=== PATIENT | female | born 1955 | race Caucasian/White ===

== ENCOUNTER 2019-09-20 05:48 | Day surgery (SDC) | payer OTHER, SELFPAY ==
[2019-09-20] VITALS (8 sets, daily range): BP systolic 108–130; BP diastolic 73–83; PULSE 56–85; RESP 15–16; TEMP 36.5–36.8; O2SAT 93–97; BMI 33.5
--- NOTE | 2019-09-20 05:57 | EKG12_ITS ---
Test Reason : PRE OP Blood Pressure : / mmHG Vent. Rate : 055 BPM Atrial Rate : 055 BPM P-R Int : 154 ms QRS Dur : 078 ms QT Int : 432 ms P-R-T Axes : 052 024 018 degrees QTc Int : 413 ms Sinus bradycardia Otherwise normal ECG No previous ECGs available Confirmed by RIANNA CARDENAS, JEANNETTE ([id number]), fan mail editor APRYL GAO ([id number]) on 09/24/2019 9:57:07 AM Referred By: Mekhi Montiel Confirmed By:JEANNETTE BLANCA MD
[2019-09-20] MEDS: Lactated Ringers 1,000 ML 100 ML IV (06:27)
[2019-09-20 06:34] LABS: Hematocrit 38.2 % (37-47); Hemoglobin 12.6 g/dL (12.0-15.0); Mean Corpuscular Hgb 30.3 pg (27.0-32.0); Mean Corpuscular Volume 91.8 fL (81-99); Mean Platelet Vol. 8.9 fl (6.2-12.0); Platelet Count 213 K/mm3 (150-450); RBC Distribution Width SD 40.7 fl (35.1-43.9); Red Blood Count 4.16 M/mm3 (4.2-5.4); White Blood Count 4.6 K/mm3 (4.4-11.0)
[2019-09-20 06:48] LABS: International Normalized Ratio 1.1; Prothrombin Time (Protime)PT. 13.9 SECONDS (11.7-14.9)
[2019-09-20 06:49] LABS: Partial Thromboplast Time 36.5 Seconds (24.1-36.2)
[2019-09-20 07:05] LABS: AST(SGOT) 17 U/L (15-37); Alanine Aminotransfer ALT/SGPT 27 U/L (13-56); Albumin, Serum 3.7 g/dL (3.2-5.0); Alkaline Phosphatase 111 U/L (45-117); Bilirubin, Direct 0.16 mg/dL (0.00-0.30); Globulin 3.6 g/dL (2.2-4.2); Protein, Total 7.3 g/dL (6.4-8.2)
--- NOTE | 2019-09-20 07:30 | ETH_PTH ---
PATIENT: AGUS GUILLERMO [place] [facility] [place][id number] AGE/SX: 63/F ROOM: RE09/20/[address]: Dr. Mekhi Montiel MD : [id number] BED: DIS: 09/20/2019 SPEC #: [id number] RECD: 09/20/19 10:25 STATUS: JOAQUÍN RITU #: [id number] JOSEPH: 09/20/19 07:[address]: Mekhi Montiel DEPT: SURGICAL PATHOLOGY RECD BY: Brannon Scott Tissues: A - Ethmoid sinus, NOS B - Ethmoid sinus, NOS Procedures: Decalcification bone/plaque Surgery Specimen Level III HEADER OPERATION: Endoscopic nasal sinus maxillary antrostomy PRE-OP DIAGNOSIS: Chronic ethmoidal sinusitis and chronic maxillary sinusitis TISSUE SUBMITTED: A - Left sinus contents, B - Right sinus contents MICROSCOPIC DIAGNOSIS A. Left sinus contents, excision: Consistent with chronic sinusitis. Fragments of bone with no pathologic change. B. Right sinus contents, excision: Consistent with chronic sinusitis. Fragments of bone with no pathologic change. AM:yesenia 09/26/19 MICROSCOPIC DESCRIPTION Slides are reviewed. GROSS DESCRIPTION A - Received in fixative is one container labeled with the patient's name and designated left sinus contents. The specimen consists of multiple fragments of hemorrhagic soft tissue mixed with fragments of bone including turbinate that in aggregate measure 4 x 5 x 1.5 cm. Postal Worker tissue is submitted in two cassettes after decalcification. B - Received in fixative is one container labeled with the patient's name and designated right sinus contents. The specimen consists of multiple fragments of hemorrhagic soft tissue mixed with fragments of bone and turbinate that in aggregate measure 5 x 3 x 0.3 cm. The entire specimen is submitted in two cassettes after decalcification. / SJ:yesenia 09/20/19 TC:3 CPT: 57892 x2, 02345 x2
[2019-09-20] MEDS: Oxymetazoline 0.05% 1 SPRAY SPRAY.BTL 15 SPRAY (08:00)
[2019-09-20] MEDS: Lidocaine 4% 50 ML Bottle (08:00)
--- NOTE | 2019-09-20 08:59 | OP.PCM_ITS ---
Problem List (1) Chronic maxillary sinusitis Status: Chronic (2) Chronic ethmoidal sinusitis Status: Chronic Report of Operation Date of Procedure: 09/20/19 Pre-Operative Diagnosis: Chronic bilateral maxillary and ethmoid sinisitis Post-Operative Diagnosis: Same Surgery/Procedure Performed:: Bilateral endoscopic maxillary antrostomies, total ethmoidectomies Description of Surgical Findings:: Starla is a 63-year-old female with complaints of chronic nasal congestion, facial pain and pressure. This had failed to respond appropriate medical the rapy and CT scan showed chronic sinus changes of the maxillary and ethmoid sinuses and the above procedure was offered in hopes of improvement. The risks, alternatives, potential complications, and benefits were discussed at length and any questions answered to the patient and/or caregiver's satisfaction. Witnessed informed consent was obtained in the office, and the patient and/or caregiver was agreeable to proceed. Procedure went as follows: The patient was identified in the preoperative holding and brought to the operating room, was placed under general anesthesia and intubated. When appropriate anesthesia was obtained, the navigational head gear was placed and confirmed to be operational in accordance with the school plant consultant's directions. Pledgets soaked in a 50-50 mixture of oxymetazoline and 4% topical lidocaine were placed to decongest the nasal mucosa. These were then removed and beginning on the left side using a 0? endoscope the nasal cavity examined. The insertion of the middle turbinate and uncinate process was then injected with 1% lidocaine with 100,000 epinephrine for a total of 2 mL, and a similar injection was then carried on the contralateral side. Upon returning to the left side, the middle turbinate was medialized with a Windsor elevator. This allowed examination of the maxillary sinus ostia which was then probed with a double ball seeker. The uncinate process was then outfractured with a J curette and transected with a backbiting forceps. This was then removed with the microdebrider creating a wide maxillary antrostomy. The ethmoid bulla was then entered and a total ethmoidectomy was then carried out working posteriorly to anterior. Any polyps, scar, and mucous secretions were removed. The inferior half of the middle turbinate was resected as this was causing significant obstruction of the ostiomeatal complex. Pledgets soaked in oxymetazoline were then placed for hemostasis and attention turned to the contralateral side. Similar procedure and findings were then carried out. Floseal hemostatic agent was then applied. An NG tube was then placed to decompress the stomach and the patient returned to anesthesia, revived and extubated having tolerated the procedure well. Type of Anesthesia:: General Anesthesiologist: Joel Orta Special Medications: none Specimen's removed: sinus contents Drains: none Estimated Blood Loss (mL): 100 mL Fluids Replaced: 800 mL Grafts/Implants Used: none - Complications none - Admit VTE Documentation VTE Present on Admission: No VTE Mechan Device Prophylaxis: SCD's VTE Pharm Prophylaxis ordered?: No
--- NOTE | 2019-09-20 09:03 | DCINST_ITS ---
- Discharge Diagnoses Current Active Problems: Current Active and Chronic Problems Chronic maxillary sinusitis (Chronic) Chronic ethmoidal sinusitis (Chronic) You will use the following diet at home:: No restrictions, Regular Discharge Activity: Return to Normal Activity, May not drive while taking narcotic pain medications. Call your doctor if your incision/area has: Sudden Increased Bleeding Call your doctor if you observe: Fever of 101 or Higher, Uncontrolled pain Allergies/Adverse Reactions: Allergies Penicillins Allergy (Verified 09/20/19 06:09) Hives clindamycin Adverse Reaction (Verified 09/20/19 06:09) Nausea Medications to take at Discharge Amlodipine Besylate [Norvasc] 10 mg PO DAILY 09/16/19 Aspirin [Aspir 81] 81 mg PO DAILY 09/16/19 Atorvastatin Calcium [Lipitor] 40 mg PO DAILY 09/16/19 Cholecalciferol (Vitamin D3) [Vitamin D3] 2,000 unit PO DAILY 09/16/19 Estradiol [Estrace Vaginal Cream] 1 dose VAGINAL QODAY 09/16/19 Fluoxetine [Prozac] 20 mg PO DAILY 09/16/19 Guaifenesin/Dextromethorphan [Coricidin Hbp Softgel] 1 ea PO DAILY 09/16/19 Meloxicam [Mobic] 15 mg PO PRN PRN 09/16/19 Omeprazole Magnesium 20 mg PO QODAY 09/16/19 Orders to be completed after discharge: Basic Metabolic Profile (BMP) Time Frame: 09/20/19, Facility: [facility], Location: Laboratory Primary Care Physician: MARI SCRUGGS [Other] Test Results: Test results from this visit will be discussed in further detail at your follow- up appointment, if applicable. Please Follow Up With: Mekhi Montiel MD When: 2 weeks
[2019-09-20] MEDS: HYDROcodone Bitartrate/Apap 5/325 Tablet PO (10:26)
== END 2019-09-20 11:25 | disposition home or self-care (01) ==
LOC: SDC 05:49 → AC 05:51
PROVIDERS: Anesthesiology; Referring Provider Otolaryngology; Visit Provider Otolaryngology
PROC: (CPT 31255; principal; 2019-09-20 07:00)
DX: J32.0 Chronic maxillary sinusitis (principal); J32.2 Chronic ethmoidal sinusitis; K21.9 Gastro-esophageal reflux disease without esophagitis; E78.00 Pure hypercholesterolemia, unspecified; F32.9 Major depressive disorder, single episode, unspecified; F41.9 Anxiety disorder, unspecified; I12.9 Hypertensive chronic kidney disease with stage 1 through stage 4 chronic kidney disease, or unspecified chronic kidney disease; N18.3 Chronic kidney disease, stage 3 (moderate); G47.30 Sleep apnea, unspecified; Z79.82 Long term (current) use of aspirin; Z79.899 Other long term (current) drug therapy
CPT/HCPCS: 00160; 31255; 31256; 80076; 85027; 85610; 85730; 88304; 88305; 88311; 93005; J7120; J2405